=== PATIENT | female | born 1940 | race Caucasian/White ===

== ENCOUNTER → 2017-02-03 | Outpatient (CLI) | payer OTHER ==
[~2017-02-03] MED LIST: ADVIL200 M2 PO; AMIODARONE HCL100 MG PO; AMIODARONE PO; ASPIRIN EC81 M1 PO; ASPIRIN PO; BACTRIM DS TABL1 TA1 PO; BENTYL20 M1 PO; BETAMETHASONE D15 G5 TOP; BETAMETHASONE D50 GM; BUSPIRONE HCL7.5 MG PO; CALCIUM PO; CENTRUM SILVER PO; CERTAGEN PO; CLEOCIN PO; ELIQUIS5 MG PO; EXCEDRIN PO; FUROSEMIDE40 MG PO; IMODIUM AD PO; LASIX PO; LIPITOR40 MG PO; LISINOPRIL20 MG PO; LOPRESSOR PO; LORTAB 7.5-5001 TAB PO; LOVENOX SUBQ; MACROBID100 M1 PO; MAXZIDE 75/50 T1 TAB PO; METOPROLOL TAR25 MG PO; METOPROLOL TART25 MG PO; MOBIC PO; NEURONTIN100 MG; NEURONTIN100 MG PO; NEXIUM; NORCO 5/325 TAB1 TAB PO; NORCO 7.5-3251 EACH PO; PACERONE PO; PATIENT'S PHARMACY; PRAVACHOL PO; PRAVACHOL20 MG PO; PRAVASTATIN SOD20 MG PO; PRINIVIL40 MG PO; SULAR PO; SULFATRIM 800-120 ML PO; ULTRAM PO; VICODIN 5/500 T1 TAB PO; VIT B 6 PO; VIT B-12 PO; VIT C PO; VIT E PO; VITAMIN C250 M1 PO; ZOCOR; ZOLOFT; ZOLOFT50 MG PO; [UNRECOGNIZED DRUG - OTHER]; [UNRECOGNIZED DRUG - OTHER] PO
--- NOTE | ~2017-02-03 | CR181 ---
[facility]. [facility] A Service of [facility] RADIOLOGY TEXT RESULTS PATIENT: MANUELA CAM LOCATION: SRA : 40 UNIT #: [id number] AGE: [address]: Courtney Naik APRN SEX: F ORDER DR: [id number] [place] [id number] O MR#: [id number] Acc #: [id number] NAME: MANUELA CAM : 1940 SEX: F STUDY DATE/TIME: 02/03/2017 10:53 UNIT: SRAD ROOM: STUDY DESCRIPTION: CR Lumbar Spine 2 or 3 Views Attending Physician: Courtney Naik A.P.R.N. Ordering Physician: Courtney Naik A.P.R.N. Primary Care Physician: Milana Palafox M.D. MEDICAL IMAGING REPORT This report is preliminary unless electronic signature is present. EXAM Lumbar spine series, 3 views, 02/03/2017. HISTORY Bilateral leg numbness for a couple of months. FINDINGS There is levoscoliosis, but no jean-claude or retrolisthesis. There is mild discogenic change but no fracture or bone destruction. No acute abnormality. Dictated by... Can Vogt M.D. THIS IS AN ELECTRONICALLY VERIFIED REPORT Can Vogt M.D. at 02/04/2017 10:46 PM TEV/clarence TD: 02/03/2017 15:21 JOB #: [id number] MEDICAL IMAGING REPORT Page 1 of 1
== END | disposition home or self-care (01) ==
LOC: SRAD 10:40
DX: R20.0 Anesthesia of skin (principal)
CPT/HCPCS: 72100

== ENCOUNTER → 2017-05-08 | Outpatient (CLI) | payer OTHER ==
--- NOTE | ~2017-05-08 | US128 ---
[id number] [facility]. [facility] [address] [place], [place] [address] [id number] O MR#: [id number] Acc #: [id number] NAME: MANUELA CAM : 1940 SEX: F STUDY DATE/TIME: 05/08/2017 13:45 UNIT: CGUS ROOM: STUDY DESCRIPTION: Thyroid Attending Physician: Courtney Naik A.P.R.N. Referring Physician: Courtney Naik A.P.R.N. Ordering Physician: Courtney Naik A.P.R.N. Primary Care Physician: Milana Palafox M.D. MEDICAL IMAGING REPORT This report is preliminary unless electronic signature is present EXAM Thyroid ultrasound, 05/08/2017. HISTORY Thyroid enlargement with difficulty swallowing for a couple months. Hypertension. Hyperlipidemia. COMPARISON None FINDINGS The right thyroid lobe measures 1.6 x 4.9 x 2.1 cm. The isthmus measures 5 mm in thickness. The left thyroid lobe measures 1.6 x 4.0 x 1.8 cm. The thyroid parenchyma is somewhat heterogeneous and coarsened. A single hypoechoic nodule is demonstrated within the left mid thyroid lobe anteriorly, measuring 5 mm. No additional nodules are identified. No thyroid hypervascularity is evident. IMPRESSION Borderline thyroid gland enlargement. Single 5-mm nodule in the left thyroid lobe. No suspicious thyroid nodules are identified. Dictated by... Vidya Diaz M.D. THIS IS AN ELECTRONICALLY VERIFIED REPORT Vidya Diaz M.D. at 05/12/2017 8:33 AM ANA MARIA/henok TD: 05/09/2017 17:27 JOB #: [id number] MEDICAL IMAGING REPORT Page 1 of 1 COPY
== END | disposition home or self-care (01) ==
LOC: CGUS 12:59
DX: E01.0 Iodine-deficiency related diffuse (endemic) goiter (principal); E04.1 Nontoxic single thyroid nodule
CPT/HCPCS: 76536